=== PATIENT | female | born 1995 | race American Indian/Alaskan Native ===

== ENCOUNTER 2019-02-06 07:25 | Emergency (ER) | payer MEDICAID ==
[2019-02-06 18:48] VITALS: BP 119/74; PULSE 97; RESP 18; TEMP 97.8; O2SAT 98
== END 2019-02-06 08:25 | disposition home or self-care (01) ==
LOC: H.EROB2 07:25
DX: O26.93 Pregnancy related conditions, unspecified, third trimester (principal); Z34.93 Encounter for supervision of normal pregnancy, unspecified, third trimester; Z3A.40 40 weeks gestation of pregnancy; O48.0 Post-term pregnancy

== ENCOUNTER 2019-02-10 01:28 | Inpatient (IN) | payer MEDICAID ==
--- NOTE | 2019-02-10 02:23 | OBHP ---
Datetime: 02/10/2019 02:20 IP Adm Impression: Term, intrauterine ; Active labor IP Admit Plan: Admit to unit Pelvic Type - PN: Adequate Extremities - PN: Normal Abdomen - PN: Normal Back - PN: Normal Breast - PN: Normal Lungs - PN: Normal Heart - PN: Normal Thyroid - PN: Normal Neurologic - PN: Normal HEENT - PN: Normal General - PN: Normal Presentation-Admit: Vertex FHR - Baseline A Provider: 145 Gestation - Est Wks by US: 40.0 EGA AdmitDate IP: 40.6 Vital Signs Provider: Reviewed IP Chief Complaint: Uterine contractions; evaluation NICHD Variability Prov Fetus A: Moderate 6-25bpm NICHD Accel Fetus A IP Provider: 15X15 Dilatation, Provider: 4 Effacement, Provider: 100 Station, Provider: 0 Genitourinary Exam: Normal DTRs - PN: Normal Datetime: 02/06/2019 08:03 IP Chief Complaint Other: concern for position Admit Comment, IP Provider: 23 yo f 40.2wk present due concern of baby position. Otherwise rosario ent have no other complains. Denies freq contraction, bleeding or water gush. Admit on baby moving. PCP: paul Silvestre (first 6 mo) Medication: iron, PMH anemia OBGYN none, no complication during preg PSH none PFH HTN, DM, Sickle cell, Cancer Social denies smoke drink drug use 8:04 Assessment and plan 23 yo f 40.9wk present for baby position concern. US vertex presentation PE WNL Discharge home and follow up with PCP Dr. Joanna DAILY discussed with Dr Felix Patient was seen with the resident I agree with the note Comments, ACOG Physical Exam: heart s1, s2 no extra heart sound lung clear abd nontnder, BS+ NICHD Decel Fetus A IP Provider: None
--- NOTE | 2019-02-10 02:25 | OBADHP ---
Datetime: 02/10/2019 02:20 Admit Comment, IP Provider: Patient is 1 para 0 estimated gestational age 40 weeks 6 days pa yamilet presents to labor and delivery complaining of uterine contractions of moderate intensity patien t denies vaginal bleeding leakage of fluid she reports good movement. Patient states care has been unremarkable Past medical history none Past surgical history none No known drug allergies Social history denies alcohol tobacco use care at [facility] and with Dr. Mcgregor records reviewed Review of systems patient denies headache chest pain shortness of breath palpitations nausea vomit ing diarrhea vaginal bleeding heat or cold intolerance easy bruisability musculoskeletal or neurologi jay complaints Intrauterine at 40+ weeks Active labor Adequate pelvis Vertex presentation Estimated weight 7-1/2-8 pounds Anticipate normal vaginal vaginal delivery Analgesia as needed Pelvic Type - PN: Adequate Extremities - PN: Normal Abdomen - PN: Normal Back - PN: Normal Breast - PN: Normal Lungs - PN: Normal Heart - PN: Normal Thyroid - PN: Normal Neurologic - PN: Normal HEENT - PN: Normal General - PN: Normal Presentation-Admit: Vertex FHR - Baseline A Provider: 145 Gestation - Est Wks by US: 40.0 Vital Signs Provider: Reviewed IP Chief Complaint: Uterine contractions; evaluation NICHD Variability Prov Fetus A: Moderate 6-25bpm NICHD Accel Fetus A IP Provider: 15X15 Dilatation, Provider: 4 Effacement, Provider: 100 Station, Provider: 0 Genitourinary Exam: Normal DTRs - PN: Normal EGA AdmitDate IP: 40.6 IP Adm Impression: Term, intrauterine ; Active labor IP Admit Plan: Admit to unit Datetime: 02/06/2019 08:03 IP Chief Complaint Other: concern for position Comments, ACOG Physical Exam: heart s1, s2 no extra heart sound lung clear abd nontnder, BS+ NICHD Decel Fetus A IP Provider: None
[2019-02-10 02:27] VITALS: BMI 26.9
[2019-02-10] MEDS ORDERED: Lactated Ringer's 1,000 ML IV ONE (02:27)
[2019-02-10 02:49] LABS: BASO # 0.1 K/uL (0.0-0.2); BASO % 0.9 % (0.0-2.0); EOS % 0.3 % (0.0-4.0); HEMOGLOBIN 11.6 g/dL (12.0-16.0); LYMPH % 19.7 % (20.0-40.0); MEAN CORPUSCULAR HEMOGLOBIN 30.6 pg (27.0-31.0); MEAN CORPUSCULAR HGB CONC 35.1 g/dL (33.0-37.0); MEAN PLATELET VOLUME 9.7 fl (7.2-11.7); NEUT # 6.9 K/uL (1.8-7.0); NEUT % 69.1 % (50.0-75.0); NRBC % 0.1 % (0.0-0.0); RBC 3.8 Mil/uL (3.80-5.20); RED CELL DISTRIBUTION WIDTH 15.5 % (11.5-14.5)
[2019-02-10 03:58] VITALS: RESP 20; O2SAT 100
[2019-02-10] MEDS ORDERED: Fentanyl/Bupivacaine HCl 250 ML EPI ONE (04:23)
[2019-02-10] MEDS: Lactated Ringer's 1,000 ML IV SCH ×2 (04:30→12:34)
[2019-02-10] MEDS ORDERED: Oxytocin 30 UNIT in NS 500 ml 30 UNITS/500 ML BAG IV ONE ×5 (09:45→15:22)
--- NOTE | 2019-02-10 10:20 | OBPN ---
Datetime: 02/10/2019 09:30 IP Progress Impression: Normal progression of labor IP Informed Consent Obtain: Vaginal Delivery IP Procedures: Artificial ROM; Sterile Vag Exam IP Progress Plan: Continue present management Membranes, Provider: Ruptured Contraction Comments Provider: q 4 mins FHR - Baseline A Provider: 120 IP Progress Note Comment: Patient evaluated, feeling comfortable s/p epidural. VE = 8/80/-1, AROM, clear fluid FHR = 120 mod rolo, +accels, no decels TOCO = ctning q 4 mins A/P 1. Patient progressing slowly, now 8cm, AROM. Will start Pitocin for augmentation 2. CEFM and TOCO 3. Re-evaluate as needed Vital Signs Provider: Reviewed; Within Normal Limits NICHD Accel Fetus A IP Provider: 15X15 NICHD Variability Prov Fetus A: Moderate 6-25bpm Dilatation, Provider: 8 Effacement, Provider: 80 Station, Provider: -1 NICHD Decel Fetus A IP Provider: None Datetime: 02/10/2019 02:20 Gestation - Est Wks by US: 40.0 Presentation-Admit: Vertex
[2019-02-10] MEDS ORDERED: Oxycodone/Acetaminophen 5/325 mg Tab PO PRN ×2 (16:31→20:08)
[2019-02-10] MEDS ORDERED: Benzocaine/Menthol SPRAY TOP PRN ×2 (16:31→20:08)
--- NOTE | 2019-02-10 16:38 | OBDS ---
DELIVERY PERSONNEL Delivery Doctor: Lara Christiansen MD Vp Digital Marketing Social Media And Crm: Matty Cárdenas Resident: Fuad Marshall MD MATERNAL INFORMATION Delivery Anesthesia: Epidural Medications in Delivery: pitocin Estimated Blood Loss (ml): 100 Placenta Cultured: No Maternal Complications: None RN Comments: Atraumatic delivery of viable babyboy with Lusty cry skin to skin initiated immediatly after passed meconuim. clean and returned to mother. Patient tolerated delivery well. Infant and patient recoveryng well. Provider Comments: 23 yo f 40.6wk just delivered a 3209gm baby boy on 02/10/19 @ 15:18 Via NVD, 9/9 with no complication. Placenta was delivered mints after baby, there was a sec degree fanny rodrigue laceration, repaired and sutured. EBL 100. Baby placed on mom for skin to skin. Procedure done b y Dr Chrsitiansen, with Dr. Marshall as web marketing assistant. Dr. Marshall Case discussed Dr Christiansen. LABOR SUMMARY EDC: 02/04/2019 00:00 No. Babies in Womb: 1 Attempted: No Labor Anesthesia: Epidural LABOR INFORMATION Reason for Induction: Not Applicable Complete Dilatation: 02/10/2019 13:00 Oxytocin: Augmentation Group B Beta Strep: Negative Antibiotics # of Doses: n/a Antibiotics Time of Last Dose: n/a Steroids Given: None Reason Steroids Not Administered: Not Applicable MEMBRANES Membranes Rupture Method: Artificial Rupture of Membranes: 02/10/2019 09:20 Length of Rupture (hrs): 5.97 Amniotic Fluid Color: Light Meconium Amniotic Fluid Amount: Small Amniotic Fluid Odor: Normal STAGES OF LABOR Stage 2 hrs: 2 Stage 2 min: 18 Stage 3 hrs: 0 Stage 3 min: 4 VAGINAL DELIVERY Episiotomy: None Laceration Extension: Second Degree Laceration Type: Perineal Initial Vag Sponge Count: laps=5 with ring and 1 without ring //Sponges=10 Final Vag Sponge Count: 5 Initial Vag Sharps Count: 2 Final Vag Sharps Count: 2 Sponge Count Correct: Yes Sharps Count Correct: Yes Count Comment: count correect and acknowledge BABY A INFORMATION Delivery Date/Time: 02/10/2019 15:18 Method of Delivery: Vaginal Born in Route : No : N/A Forceps: N/A Vacuum Extraction: N/A Shoulder Dystocia : No SHOULDER DYSTOCIA BABY A Delivery Date/Time: 02/10/2019 15:18 PRESENTATION/POSITION BABY A Presentation: Cephalic Cephalic Presentation: Vertex Vertex Position: Left Occipital Anterior Breech Presentation: N/A PLACENTA INFORMATION BABY A Placenta Delivery Time : 02/10/2019 15:22 Placenta Method of Delivery: Spontaneous Placenta Status: Delivered SCORES BABY A Heart Rate 1 min: >100 bpm Resp Effort 1 min: Good Cry Reflex Irritability 1 min: Cough or Sneeze or Pulls Away Muscle Tone 1 min: Active Motion Color 1 min: Body [place], Extremities Blue Resuscitation Effort 1 min: N/A SCORE 1 MIN: 9 Heart Rate 5 min: >100 bpm Resp Effort 5 min: Good Cry Reflex Irritability 5 min: Cough or Sneeze or Pulls Away Muscle Tone 5 min: Active Motion Color 5 min: Body [place], Extremities Blue Resuscitation Effort 5 min: N/A SCORE 5 MIN: 9 INFANT INFORMATION BABY A Gestational Age at Delivery: 40.0 Gestational Status: Term Outcome : Liveborn Infant Condition : Stable Sex: Male IDENTIFICATION/MEDS BABY A ID Band Number: [id number] ID Band Location: Left Leg; Left Arm Vitamin K Given : Not Given Erythromycin Given: Not Given WEIGHT/LENGTH BABY A Birthweight (gms): 3209 Weight (lb): 7 Infant Weight (oz): 1 CORD INFORMATION BABY A No. Cord Vessels: 3 Nuchal Cord : N/A Nuchal Cord Other: n/a True Knot: n/a Cord pH Baby Venous: n/a Cord Blood Taken: No Banking/Donate Info: n/a Infant Suction: Mouth ASSESSMENT BABY A Infant Complications: None Physical Findings at Delivery: Within Normal Limits Respirations: Appears Normal Nps/ALS Called : No Transferred To: Remains with Mother
[2019-02-11 06:39] LABS: MEAN CORPUSCULAR HEMOGLOBIN 29.9 pg (27.0-31.0); MEAN CORPUSCULAR HGB CONC 33.9 g/dL (33.0-37.0); RBC 3.15 Mil/uL (3.80-5.20); RED CELL DISTRIBUTION WIDTH 15.5 % (11.5-14.5); WHITE BLOOD COUNT 13.5 K/uL (4.8-10.8)
[2019-02-11 06:47] LABS: HEMOGLOBIN 9.4 g/dL (12.0-16.0)
[2019-02-12] MEDS ORDERED: Prenatal Multivit/Folic Acid/Iron Tab PO SCH (09:00)
--- NOTE | 2019-02-12 09:28 | OBPPN ---
Datetime: 02/12/2019 06:06 PP Pain Prov: Within normal limits PP Nausea Prov: Denies PP Flatus Prov: Yes PP BM Prov: No PP Heart Prov: Normal PP Lungs Prov: Normal PP Comments Phys Exam Prov: see progress note PP Impression Prov: Normal progression PP Plan Prov: Continue present management; Discharge PP Progress Note Prov: 23 YO s/p , today PPD 2. Patient seen and examined at bedside. Pain control with medication. Patient ambulating with no difficulty. Tolerating regular diet without N/V. Lochia is less than menses in volume. Patient has passed flatus, -BM yet. Patient denies SAUNDERS, blurry v ision, CP, palpitations, SOB, chills dysuria or other complaint at this time. appropria tely. VS: wnl Gen: NAD HEENT: NCAT Cardio: RRR, S1S2 present, no murmurs noted. Lungs: CTA B/L, no wheezes, rales or rhonchi Abd: soft, appropriate tenderness to palpation, Uterus firm at level of umbilicus Ext: No edema, Josse's negative NEURO/PSYCH: AAOx3, no grossly focal deficits, preserved affect and mood A/P 23 YO s/p , Today on her PPD2. Patient is afebrile, hemodynamically stable and with stephanie l PP progression. Plan: - and ambulation encouraged. -Acetaminophen 650 PO Q6h PRN pain mild -Percocet 5/325 PO Q4h PRN pain -Continue vit -DC planning today Case discussed with attending Ej Coto MD PGY1 The patient was seen with the resident I agree with the note Vital Signs Provider PP: Reviewed; Within Normal Limits
--- NOTE | 2019-02-12 09:33 | OBDCSUM ---
Datetime: 02/12/2019 06:12 Discharged to, Provider: Home Follow up at, Provider: [facility] Disch Instr Diet: Regular Discharge Instructions, Provider: Routine instructions given Discharge Diagnosis, Provider: Term Delivered Follow up in weeks, Provider: 4 weeks Contraception discussed, Prov: Yes Disch Activity Restrictions: No lifting; Minimize walking; Nothing in vagina - [place], tampons, douche Discharge Comment, Provider: 23 YO female status post NVD at [place] 40.6 wk, had baby boy on 02/10/19 . : male, Wt. 3209 gm, 9/9 Post- D/C Summary: 23 YO female status post NVD at [place] 40.6 wk. Intrapartum: EBL 100 ml, Second degree vaginal laceration was repaired. No complications during post- period, today on her day 2 PPD with normal progression . Lochia is less than menses. Pt able to pass flatus , has passed a bowel movement. Voiding well and able to ambulate without difficulty. Tolerating regul ar diet w/o N/V. Fundus firm below umbilicus level. Pt is hemodynamically stable. H/H: 9.4/27.8 Discharge Instructions given to patient: Encourage PNV 1 tab po q/day Ibuprofen 400 mg 1 tab po prn q4-6 if moderate pain. Ambulatory with caution, nothing per vagina/sex for 4 weeks, no heavy lifting, avoid stairs, if ex cessive bleeding or fever without relief from Tylenol go to ED ED precautions: If excessive bleeding, pain that does not get relief, fever >100.4, palpitations, SOB, CP or other concerning symptom go to the ED. PT was urged if feeling sad, mood swing, depression, neglect of baby, suicidal thoughts, homicidal thoughts go to ER or call 911 for help Follow-up with [facility] in 4 week for post- check. The patient was seen with the resident I agree with the note Contraception after Delivery: Undecided
[2019-02-12 19:15] VITALS: BP 106/63; PULSE 89; TEMP 98.1
== END 2019-02-12 13:00 | disposition home or self-care (01) | DRG 373 ==
LOC: H.EROB2 01:28 → H.L&D 02:28 → H.OB/GYN 19:00
PROVIDERS: ADMIT Obstetrics & Gynecology Gynecology; ATTEND Obstetrics & Gynecology Gynecology
PROC: 0KQM0ZZ Repair Perineum Muscle, Open Approach (ICD-10-PCS; principal; 2019-02-10)
PROC: 10E0XZZ Delivery of Products of Conception, External Approach (ICD-10-PCS; 2019-02-10)
PROC: 4A1HXCZ Monitoring of Products of Conception, Cardiac Rate, External Approach (ICD-10-PCS; 2019-02-10)
DX: O70.1 Second degree perineal laceration during delivery (principal); Z3A.40 40 weeks gestation of pregnancy; Z37.0 Single live birth